=== PATIENT | male | born 1995 | race Asian ===

== ENCOUNTER 2020-03-25 13:22 | Emergency (ER) | payer SELFPAY ==
[~2020-03-25] VITALS: Ht 177.8 cm; Wt 71.4 kg
[2020-03-25] MEDS ORDERED: PERTUSS(ACELL),DIPH,TET VAC/PF 0.5 ML VIAL IM ONE (14:30)
[2020-03-25] MEDS ORDERED: AMOX TR/POT CLAV 875 MG/125 MG TABLET PO ONE (14:45)
[2020-03-25 15:25] VITALS: BP 130/80
== END 2020-03-25 15:28 | disposition home or self-care (01) ==
LOC: EMS 13:24
DX: S61.532A Puncture wound without foreign body of left wrist, initial encounter (principal); W54.0XXA Bitten by dog, initial encounter; Y93.89 Activity, other specified; Y92.89 Other specified places as the place of occurrence of the external cause; Y99.8 Other external cause status
CPT/HCPCS: 90471; 90715